=== PATIENT | male | born 1960 | race Caucasian/White ===

== ENCOUNTER 2019-06-28 11:17 | Day surgery (SDC) | payer OTHER ==
[2019-06-27 16:52] VITALS: BMI 26.7
[2019-06-28 14:19] VITALS: TEMP 97.8
[2019-06-28 14:38] VITALS: BP 149/92; PULSE 86
--- NOTE | 2019-06-29 16:57 | PATH ---
Surgical Pathology Report Patient Name: ESTEVAN DAVILA [facility]. Rec. #: [id number] /Age/Gender: 1960 (Age: 59) / M Account: [id number] Location: U-ENDOSCOPY Taken: 06/28/2019 Received: 06/28/2019 Reported: 06/29/2019 Physicians: Raffy Lal D.O. Specimen(s) Received A: STOMACH, BODY, POLYP B: GE JUNCTION Clinical History GERD Postoperative diagnosis: Hiatal hernia, gastric polyps Final Diagnosis A. STOMACH, BODY, POLYP, BIOPSY: FUNDIC GLAND POLYP. IMMUNOHISTOCHEMICAL STAIN FOR H. PYLORI IS NEGATIVE. B. GE JUNCTION, BIOPSY: SQUAMOUS MUCOSA WITH SEVERE BASAL CELL HYPERPLASIA, ACUTE ESOPHAGITIS AND ASSOCIATED ULCERATION. PAS FUNGAL STAIN IS NEGATIVE. Positive and negative controls (internal if applicable) show appropriate results. Electronically Signed Rashida Roth M.D. Gross Description A. Received in formalin, labeled "biopsy polyp at body of stomach" is a rodriguez, irregular portion of soft tissue measuring 0.2 cm. in greatest dimension. The specimen is submitted in toto in one cassette. B. Received in formalin, labeled "biopsy GE junction" are 2 rodriguez, irregular portions of soft tissue measuring 0.2 and 0.6 cm. in greatest dimension. The specimens are submitted in toto in one cassette. /06/28/2019 saudi/06/28/2019
== END 2019-06-28 15:05 | disposition home or self-care (01) ==
LOC: JASU-ENDO 11:17
PROVIDERS: ATTEND Internal Medicine Gastroenterology
PROC: 0DB68ZX Excision of Stomach, Via Natural or Artificial Opening Endoscopic, Diagnostic (ICD-10-PCS; principal; 2019-06-28 12:15)
DX: K21.0 Gastro-esophageal reflux disease with esophagitis (principal); K44.9 Diaphragmatic hernia without obstruction or gangrene; E11.9 Type 2 diabetes mellitus without complications; I10 Essential (primary) hypertension
CPT/HCPCS: 88305-TC; 88312-TC; 88342-TC

== ENCOUNTER 2023-06-25 20:32 | Emergency (ER) | payer OTHER ==
[2023-06-25 20:51] VITALS: BMI 23.5
[2023-06-25 22:19] VITALS: BP 112/70; PULSE 83; RESP 17; TEMP 98.2
[2023-06-25] MEDS: SODIUM CHLORIDE 1,000 ML IV STA (23:00)
== END 2023-06-25 23:12 | disposition left against medical advice (07) ==
LOC: JER 20:32
DX: R55 Syncope and collapse (principal); E11.649 Type 2 diabetes mellitus with hypoglycemia without coma
CPT/HCPCS: 71046-TC-FY; 93005; 93010; 99284-25

== ENCOUNTER 2023-08-09 05:06 | Emergency (ER) | payer OTHER ==
[2023-08-09 05:23] VITALS: BP 152/100; PULSE 98; RESP 18; TEMP 98.1; BMI 23.5
== END 2023-08-09 06:46 | disposition home or self-care (01) ==
LOC: JER 05:06
DX: E11.649 Type 2 diabetes mellitus with hypoglycemia without coma (principal); Z79.4 Long term (current) use of insulin
CPT/HCPCS: 70450-TC; 99284-25

== ENCOUNTER 2024-03-07 10:21 | Emergency (ER) | payer OTHER ==
[2024-03-07 10:37] VITALS: BP 176/55; PULSE 100; RESP 17; TEMP 98.1; BMI 23.8
[2024-03-07 11:30] LABS: EPI CELLS 6 /uL (0-25.1); HYALINE CASTS 0 /uL (0-3.1); PH,URINE 5.5 (5.0-8.0); URINE APPEARANCE CLEAR; URINE BACTERIA 6 /uL (0-1359); URINE BILIRUBIN NEGATIVE (NEGATIVE); URINE COLOR YELLOW; URINE GLUCOSE (UA) 3+ (NEGATIVE); URINE KETONE TRACE (NEGATIVE); URINE LEUK ESTERASE NEGATIVE (NEGATIVE); URINE NITRITE NEGATIVE (NEGATIVE); URINE PROTEIN TRACE (NEGATIVE); URINE RBC 1777 /uL (0-23.9); URINE WBC 13 /uL (0-25.8)
[2024-03-07 12:42] LABS: BASO % 2.4 % (0-2.0); EOS % 1.3 % (0-4.5); HEMATOCRIT 43.5 % (35.4-49); HEMOGLOBIN 14.9 GM/dL (11.7-16.9); LYMPH % 21.9 % (8-40); MCH 33.6 pg (25.7-33.7); MCHC 34.3 g/dl (32.0-35.9); MEAN PLT VOLUME 8.3 fl (7.5-11.1); MONO % 8.7 % (3.8-10.2); NEUT % 65.7 % (42.8-82.8); PLATELET COUNT 241 10^3/uL (134-434); RBC 4.44 M/mm3 (4.00-5.60); WHITE BLOOD COUNT 5.6 K/mm3 (4.0-10.0)
[2024-03-07 13:00] LABS: POTASSIUM 4.1 mmol/L (3.5-5.1)
[2024-03-07 13:04] LABS: CALCIUM 9.8 mg/dL (8.5-10.1)
[2024-03-07 13:05] LABS: BLOOD UREA NITROGEN 20.9 mg/dL (7-18)
[2024-03-07 13:09] LABS: BILIRUBIN,TOTAL 0.6 mg/dL (0.2-1); TOT PROT 7.4 g/dl (6.4-8.2)
== END 2024-03-07 15:12 | disposition home or self-care (01) ==
LOC: JER 10:21
DX: R31.9 Hematuria, unspecified (principal)
CPT/HCPCS: 36415; 74176-TC; 80053; 81003; 82962; 85025; 87086; 99284-25

== ENCOUNTER 2024-07-07 07:33 | Day surgery (SDC) | payer OTHER ==
[2024-06-23 14:52] VITALS: BMI 23.9
[2024-07-07 09:56] VITALS: TEMP 98
[2024-07-07 09:57] VITALS: RESP 18
[2024-07-07 10:57] VITALS: BP 134/77; PULSE 83
== END 2024-07-07 10:45 | disposition home or self-care (01) ==
LOC: JASU-ENDO 07:33
PROVIDERS: ATTEND Internal Medicine Gastroenterology
PROC: 0DB78ZX Excision of Stomach, Pylorus, Via Natural or Artificial Opening Endoscopic, Diagnostic (ICD-10-PCS; 2024-07-07)
PROC: 0DB68ZX Excision of Stomach, Via Natural or Artificial Opening Endoscopic, Diagnostic (ICD-10-PCS; 2024-07-07)
PROC: 0DB38ZX Excision of Lower Esophagus, Via Natural or Artificial Opening Endoscopic, Diagnostic (ICD-10-PCS; 2024-07-07)
PROC: 0DB98ZX Excision of Duodenum, Via Natural or Artificial Opening Endoscopic, Diagnostic (ICD-10-PCS; principal; 2024-07-07 09:15)
DX: K21.00 Gastro-esophageal reflux disease with esophagitis, without bleeding (principal); K44.9 Diaphragmatic hernia without obstruction or gangrene; K29.50 Unspecified chronic gastritis without bleeding; K31.89 Other diseases of stomach and duodenum
CPT/HCPCS: 82962; 88305-TC; 88342-TC

== ENCOUNTER 2024-09-08 06:05 | Day surgery (SDC) | payer OTHER ==
[2024-09-07 11:26] VITALS: BMI 25.3
[2024-09-08 08:27] VITALS: TEMP 98.2
[2024-09-08 08:47] VITALS: RESP 18
[2024-09-08 09:07] VITALS: BP 135/77; PULSE 82
== END 2024-09-08 09:25 | disposition home or self-care (01) ==
LOC: JASU-ENDO 06:05
PROVIDERS: ATTEND Internal Medicine Gastroenterology
PROC: 0DB38ZX Excision of Lower Esophagus, Via Natural or Artificial Opening Endoscopic, Diagnostic (ICD-10-PCS; principal; 2024-09-08 08:00)
DX: K25.9 Gastric ulcer, unspecified as acute or chronic, without hemorrhage or perforation (principal); K44.9 Diaphragmatic hernia without obstruction or gangrene; K29.70 Gastritis, unspecified, without bleeding
CPT/HCPCS: 82962; 88305-TC; 88312-TC